=== PATIENT | female | born 1960 | race Caucasian/White ===

== ENCOUNTER 2017-09-25 18:45 | Observation (INO) | payer OTHER ==
[2017-09-25] MEDS ORDERED: NALOXONE HCL INJ/PF 0.4 MG/1 ML SDV ONE (18:56)
[2017-09-25 19:11] LABS: ABSOLUTE EOSINOPHILS # (AUTO) 0.2 10^3/uL (0.0-0.6); ABSOLUTE LYMPHOCYTES (AUTO) 2.1 10^3/uL (0.5-4.7); ABSOLUTE MONOCYTES (AUTO) 1.1 10^3/uL (0.1-1.4); ABSOLUTE NEUT (AUTO) 12.1 10^3/uL (1.7-8.2); BASOPHILS % (AUTO) 0.3 % (0-2); EOSINOPHILS % (AUTO) 1.6 % (0-6); HEMATOCRIT 38.8 % (36.0-47.0); HEMOGLOBIN 13.1 g/dL (12.0-15.5); LYMPHOCYTES % (AUTO) 13.2 % (13-45); MEAN CORPUSCULAR HEMOGLOBIN 32.1 pg (27.0-33.4); MEAN CORPUSCULAR HGB CONC 33.8 g/dL (32.0-36.0); MEAN CORPUSCULAR VOLUME 95 fl (80-97); MONOCYTES % (AUTO) 7.2 % (3-13); PLATELET COUNT 256 10^3/uL (150-450); RED BLOOD COUNT 4.08 10^6/uL (3.72-5.28); RED CELL DISTRIBUTION WIDTH 12.8 % (11.5-14.0); SEGMENTED NEUTROPHILS % (AUTO) 77.7 % (42-78); TOTAL CELLS COUNTED % (AUTO) 100 %; WHITE BLOOD COUNT 15.6 10^3/uL (4.0-10.5)
[2017-09-25 19:29] LABS: ALANINE AMINOTRANSFERASE 20 U/L (9-52); ALBUMIN 4.1 g/dL (3.5-5.0); ALKALINE PHOSPHATASE 92 U/L (38-126); ANION GAP 10 (5-19); ASPARTATE AMINO TRANSFERASE 32 U/L (14-36); BILIRUBIN,DIRECT 0.3 mg/dL (0.0-0.4); BILIRUBIN,TOTAL 0.4 mg/dL (0.2-1.3); BLOOD UREA NITROGEN 5 mg/dL (7-20); CALCIUM 9.7 mg/dL (8.4-10.2); CARBON DIOXIDE 30 mmol/L (22-30); CHLORIDE 101 mmol/L (98-107); GLUCOSE 101 mg/dL (75-110); SODIUM 141.1 mmol/L (137-145); TOTAL PROTEIN 7.2 g/dL (6.3-8.2)
[2017-09-25 20:57] LABS: URINE AMPHETAMINES SCREEN NEGATIVE; URINE BARBITURATES SCREEN NEGATIVE; URINE BENZODIAZEPINES SCREEN UNCONFIRMED POSITIVE; URINE COCAINE SCREEN NEGATIVE; URINE MARIJUANA (THC) SCREEN NEGATIVE; URINE METHADONE SCREEN NEGATIVE; URINE PHENCYCLIDINE SCREEN NEGATIVE
--- NOTE | 2017-09-25 21:08 | ER Document Report ---
ED General - General Chief Complaint: Overdose Stated Complaint: POSSIBLE OVERDOSE Time Seen by Provider: 09/25/17 18:57 Mode of Arrival: Ambulatory Information source: Patient Notes: 57-year-old female presents as overdose altered mental status from home. Patient was found to be confused minimally responsive by EMS she was satting 87 % on room air nasal cannula was placed and patient was brought to the emergency department where he was noted to come in with a bottle of promethazine/codeine 480 mL bottle with almost 450 mL's missing. Patient notes she drank the whole bottle patient denies suicidal ideation states she was taking it to sleep TRAVEL OUTSIDE OF THE [place] IN LAST 30 DAYS: No - HPI Onset: Just prior to arrival Onset/Duration: Sudden Quality of pain: No pain Severity: Moderate Pain Level: 1 Associated symptoms: Other Exacerbated by: Denies Relieved by: Denies Similar symptoms previously: No Recently seen / treated by doctor: No - Related Data Allergies/Adverse Reactions: No Known Allergies Allergy (Verified 10/03/15 09:22) Past Medical History - Social History Smoking Status: Never Smoker Cigarette use (# per day): No Chew tobacco use (# tins/day): No Smoking Education Provided: No Frequency of alcohol use: Occasional Drug Abuse: None Family History: Reviewed & Not Pertinent Patient has suicidal ideation: No Patient has homicidal ideation: No - Past Medical History Cardiac Medical History: Reports: Hx Hypertension Endocrine Medical History: Reports: Hx Diabetes Mellitus Type 2 Renal/ Medical History: Denies: Hx Peritoneal Dialysis Psychiatric Medical History: Reports: Hx Bipolar Disorder, Hx Depression, Hx Post Traumatic Stress Disorder - Immunizations Hx Diphtheria, Pertussis, Tetanus Vaccination: Yes Review of Systems - Review of Systems Notes: REVIEW OF SYSTEMS: CONSTITUTIONAL : Denies fever, chills, or sweats. Denies recent illness. EENT: Denies eye, ear, throat, or mouth pain or symptoms. Denies nasal or sinus congestion or discharge. Denies throat, tongue, or mouth swelling or difficulty swallowing. CARDIOVASCULAR: Denies chest pain. Denies palpitations or racing or irregular heart beat. Denies ankle edema. RESPIRATORY: Denies cough, cold, or chest congestion. Denies shortness of breath, difficulty breathing, or wheezing. GASTROINTESTINAL: Denies abdominal pain or distention. Denies nausea, vomiting , or diarrhea. Denies blood in vomitus, stools, or per rectum. Denies black, tarry stools. Denies constipation. GENITOURINARY: Denies difficulty urinating, painful urination, burning, frequency, blood in urine, or discharge. FEMALE GENITOURINARY: Denies vaginal bleeding, heavy or abnormal periods, irregular periods. Denies vaginal discharge or odor. MUSCULOSKELETAL: Denies back or neck pain or stiffness. Denies joint pain or swelling. SKIN: Denies rash, lesions or sores. HEMATOLOGIC : Denies easy bruising or bleeding. LYMPHATIC: Denies swollen, enlarged glands. NEUROLOGICAL: drowsy PSYCHIATRIC: Denies anxiety or stress. Denies depression, suicidal ideation, or homicidal ideation. ALL OTHER SYSTEMS REVIEWED AND NEGATIVE. PHYSICAL EXAMINATION: GENERAL: Well-appearing, well-nourished and in no acute distress. HEAD: Atraumatic, normocephalic. EYES: Pupils are constricted bilateral ENT: Nares patent, oropharynx clear without exudates. Moist mucous membranes. Nasal cannula placed NECK: Normal range of motion, supple without lymphadenopathy LUNGS: Breath sounds clear to auscultation bilaterally and equal. No wheezes rales or rhonchi. HEART: Regular rate and rhythm without murmurs ABDOMEN: Soft, nontender, nondistended abdomen. No guarding, no rebound. No masses appreciated. Female : deferred Musculoskeletal: Normal range of motion, no pitting or edema. No cyanosis. NEUROLOGICAL: drowsy, pt alert to pain stimuli PSYCH: Normal mood, normal affect. SKIN: Warm, Dry, normal turgor, no rashes or lesions noted. Dictation was performed using [employer] voice recognition software Physical Exam - Vital signs Vitals: BP Pulse Ox 114/83 94 09/25/17 18:54 09/25/17 18:54 Course - Re-evaluation Re-evalutation: 09/25/17 22:01 This appears to be an accidental overdose, patient is poorly compliant with her medications seems to take it as she feels, she did take a bottle of someone else 's medication, she was given 0.4 mg of Narcan and had immediate response to it, however given the amount that she drank and the fact that she continues to be drowsy in the emergency department I do feel it is appropriate to continue watching the patient overnight in the hospital patient was admitted for overdose - Vital Signs Vital signs: Temp Pulse Resp BP Pulse Ox 117/80 94 09/25/17 19:00 09/25/17 19:01 - Laboratory Result Diagrams: 09/25/17 18:25 09/25/17 18:25 Laboratory results interpreted by me: 09/25/17 09/25/17 18:25 18:25 WBC 15.6 H Absolute Neutrophils 12.1 H BUN 5 L Critical Care Note - Critical Care Note Total time excluding time spent on procedures (mins): 34 Comments: 34 minutes of critical care time spent in direct contact evaluating and reevaluating the patient, treating symptoms, reviewing labs and studies and speaking with family and consultants excluding any procedures Discharge - Discharge Clinical Impression: Metabolic encephalopathy, Hypoxemia Overdose Qualifiers: Encounter type: initial encounter Injury intent: accidental or unintentional Qualified Code(s): T50.901A - Poisoning by unspecified drugs, medicaments and biological substances, accidental (unintentional), initial encounter Condition: Stable Disposition: ADMITTED OBSERVATION Admitting Provider: Hospitalist Unit Admitted: [facility]
[2017-09-25] MEDS ORDERED: DEXTROSE 40% GEL 15 GM TUBE PO PRN ×2 (23:08)
[2017-09-25] MEDS ORDERED: DEXTROSE 50%-WATER 25 GM/50 ML DISP.SYRIN IV PRN ×2 (23:08)
[2017-09-25] MEDS ORDERED: GLUCAGON,HUMAN RECOMB 1 MG INJ IM PRN (23:08)
[2017-09-25] MEDS ORDERED: INSULIN LISPRO 100 UNIT/ML 3 ML VIAL SUBCUT PRN (23:08)
--- NOTE | 2017-09-25 23:08 | PDOC H&P ---
History of Present Illness Admission Date/PCP: 09/25/17 21:27 JUDSON DO MD History of Present Illness: SOPHIA BOO is a 57 year old female patient with past medical history of bipolar disorder brought by EMS for altered mental status. Since patient is somewhat sedated and impaired she is not source of history. Brief history is obtained from ER attending note. Per ER attending note patient gulped a bottle containing 450 mL of Phenergan and codeine. Reportedly it is an accidental overdose just to help her with sleep. Patient was given Narcan and her mental status relatively improved. Review of system and detailed history is unobtainable. Past Medical History Cardiac Medical History: Reports: Hypertension Endocrine Medical History: Reports: Diabetes Mellitus Type 2 Psychiatric Medical History: Reports: Bipolar Disorder, Depression, Post Traumatic Stress Disorder Social History Smoking Status: Never Smoker Frequency of Alcohol Use: Heavy Hx Recreational Drug Use: Yes Drugs: Cocaine Hx Prescription Drug Abuse: No Family History Family History: Reviewed & Not Pertinent Parental Family History Reviewed: Yes Children Family History Reviewed: Yes Sibling(s) Family History Reviewed.: Yes Medication/Allergy Home Medications: Alprazolam [Xanax 0.5 mg Tablet] 0.5 mg PO TIDP PRN 09/25/17 Buspirone HCl [Buspar 10 mg Tablet] 10 mg PO Q12 09/25/17 Divalproex Sodium [Depakote ER 500 mg Tab.sr] 500 mg PO Q12 09/25/17 Folic Acid [Folvite 1 mg Tablet] 1 mg PO DAILY 09/25/17 Multivitamin [Multiple Vitamins] 1 tab PO DAILY 09/25/17 Pantoprazole Sodium [Protonix] 40 mg PO DAILY 09/25/17 Thiamine HCl [Vitamin B-1] 50 mg PO DAILY 09/25/17 Trazodone HCl [Desyrel] 100 mg PO QHS 09/25/17 Allergies/Adverse Reactions: No Known Allergies Allergy (Verified 10/03/15 09:22) Review of Systems ROS unobtainable: Due to mental status Physical Exam Vital Signs: Temp Pulse Resp BP Pulse Ox 9 L 127/82 H 94 09/25/17 22:01 09/25/17 22:00 09/25/17 22:01 General appearance: PRESENT: no acute distress, well-developed, well-nourished Head exam: PRESENT: atraumatic, normocephalic Eye exam: PRESENT: conjunctiva pink, EOMI, PERRLA. ABSENT: scleral icterus Neck exam: ABSENT: carotid bruit, JVD, lymphadenopathy, thyromegaly Respiratory exam: PRESENT: clear to auscultation morgan. ABSENT: rales, rhonchi, wheezes Cardiovascular exam: PRESENT: RRR. ABSENT: diastolic murmur, rubs, systolic murmur GI/Abdominal exam: PRESENT: normal bowel sounds, soft. ABSENT: distended, guarding, mass, organolmegaly, rebound, tenderness Neurological exam: PRESENT: altered Psychiatric exam: PRESENT: depressed Assessment & Plan - Diagnosis (1) Accidental drug overdose Qualifiers: Encounter type: initial encounter Qualified Code(s): T50.901A - Poisoning by unspecified drugs, medicaments and biological substances, accidental ( unintentional), initial encounter Is this a current diagnosis for this admission?: Yes Plan: Patient has been improving after she was given Narcan. She will be admitted for observation. Fall, seizure, aspiration precaution. (2) Altered mental status Qualifiers: Altered mental status type: disorientation Qualified Code(s): R41.0 - Disorientation, unspecified Is this a current diagnosis for this admission?: Yes Plan: Continue to improve (3) Hypoxemia Is this a current diagnosis for this admission?: Yes Plan: Has resolved after she started on oxygen via nasal cannula.
[2017-09-26] MEDS: LANSOPRAZOLE 30 MG TAB.RAP.DR PO SCH (05:03)
[2017-09-26 06:47] LABS: HEMATOCRIT 34.5 % (36.0-47.0); HEMOGLOBIN 11.9 g/dL (12.0-15.5); MEAN CORPUSCULAR HEMOGLOBIN 32.7 pg (27.0-33.4); MEAN CORPUSCULAR HGB CONC 34.4 g/dL (32.0-36.0); MEAN CORPUSCULAR VOLUME 95 fl (80-97); PLATELET COUNT 213 10^3/uL (150-450); RED BLOOD COUNT 3.63 10^6/uL (3.72-5.28); RED CELL DISTRIBUTION WIDTH 13.2 % (11.5-14.0); WHITE BLOOD COUNT 11.3 10^3/uL (4.0-10.5)
[2017-09-26 07:05] LABS: ANION GAP 7 (5-19); BLOOD UREA NITROGEN 6 mg/dL (7-20); CALCIUM 9.1 mg/dL (8.4-10.2); CARBON DIOXIDE 34 mmol/L (22-30); CHLORIDE 102 mmol/L (98-107); GLUCOSE 88 mg/dL (75-110); POTASSIUM 3.8 mmol/L (3.6-5.0); SODIUM 142.6 mmol/L (137-145)
[2017-09-26 08:12] LABS: APPEARANCE,URINE CLEAR; BILIRUBIN,URINE NEGATIVE (NEGATIVE); COLOR,URINE YELLOW; GLUCOSE, URINE NEGATIVE (NEGATIVE); KETONES,URINE NEGATIVE (NEGATIVE); LEUKOCYTE ESTERASE,URINE NEGATIVE (NEGATIVE); NITRITE,URINE NEGATIVE (NEGATIVE); PROTEIN,URINE NEGATIVE (NEGATIVE); URINE SPECIFIC GRAVITY 1.009; UROBILINOGEN,URINE NEGATIVE mg/dL (<2.0)
[2017-09-26] MEDS: ENOXAPARIN SODIUM INJ 40 MG/0.4 ML DISP.SYRIN SUBCUT SCH (09:41)
[2017-09-26] MEDS: ACETAMINOPHEN 325 MG TABLET PO PRN (18:25)
[2017-09-26] MEDS ORDERED: ALPRAZOLAM 0.5 MG TABLET PO PRN (19:49)
--- NOTE | 2017-09-26 19:53 | PDOC PROGRESS REPORT ---
Subjective Progress Note for:: 09/26/17 Subjective:: Is feeling significantly better. She is awakening. She has some bruises and scrapes where she fell secondary to sedation. No chest pain or difficulty breathing. She is eating and drinking a little bit now. She has been sleeping most of the day. No abdominal pain nausea vomiting confusion. Reason For Visit: DRUG OVERDOSE Physical Exam Vital Signs: Temp Pulse Resp BP Pulse Ox 98.8 F 83 16 121/67 97 09/26/17 15:16 09/26/17 19:00 09/26/17 15:16 09/26/17 15:16 09/26/17 15:16 Intake & Output 09/25/17 09/26/17 09/27/17 06:59 06:59 06:59 Intake Total 375 1633 Output Total 1050 Balance 375 583 Weight 93.4 kg General appearance: PRESENT: no acute distress, cooperative, morbidly obese Head exam: PRESENT: atraumatic, normocephalic Eye exam: ABSENT: conjunctival injection, scleral icterus Mouth exam: PRESENT: dry mucosa, tongue midline Respiratory exam: PRESENT: clear to auscultation morgan, unlabored. ABSENT: rales , rhonchi, wheezes Cardiovascular exam: PRESENT: RRR. ABSENT: systolic murmur Pulses: PRESENT: normal radial pulses GI/Abdominal exam: PRESENT: normal bowel sounds, soft. ABSENT: distended, firm , guarding, tenderness Extremities exam: ABSENT: pedal edema Neurological exam: PRESENT: awake, oriented to person, oriented to place, oriented to situation, CN II-XII grossly intact Psychiatric exam: PRESENT: appropriate affect. ABSENT: anxious Skin exam: PRESENT: dry, intact, warm Results Laboratory Results: 09/26/17 05:50 09/26/17 05:50 09/26/17 09/26/17 09/26/17 05:50 05:50 07:10 WBC 11.3 H RBC 3.63 L Hgb 11.9 L Hct 34.5 L MCV 95 MCH 32.7 MCHC 34.4 RDW 13.2 Plt Count 213 Sodium 142.6 Potassium 3.8 Chloride 102 Carbon Dioxide 34 H Anion Gap 7 BUN 6 L Creatinine 0.68 Est GFR ( Amer) > 60 Est GFR (Non-Af Amer) > 60 Glucose 88 Calcium 9.1 Urine Color YELLOW Urine Appearance CLEAR Urine pH 6.0 Ur Specific [place] 1.009 Urine Protein NEGATIVE Urine Glucose (UA) NEGATIVE Urine Ketones NEGATIVE Urine Blood NEGATIVE Urine Nitrite NEGATIVE Ur Leukocyte Esterase NEGATIVE Urine WBC (Auto) 2 Urine RBC (Auto) 0 Assessment & Plan - Diagnosis (1) Accidental drug overdose Qualifiers: Encounter type: initial encounter Qualified Code(s): T50.901A - Poisoning by unspecified drugs, medicaments and biological substances, accidental ( unintentional), initial encounter Is this a current diagnosis for this admission?: Yes Plan: Patient had insomnia and drink some of her mother's codeine thinking that this would help her sleep better. Apparently there was Phenergan and the preparation as well. Patient had an accidental overdose and was brought to the ER for loss of consciousness. She is metabolizing the drugs and doing significantly better. She does not report an intentional overdose or suicidal ideation. (2) Hypoxemia Is this a current diagnosis for this admission?: Yes Plan: Patient is satting in the high 90s on room room air. Problem was secondary to accidental drug overdose. (3) Metabolic encephalopathy Is this a current diagnosis for this admission?: Yes Plan: Secondary to accidental drug overdose. Patient's baseline mental status is returning. (4) Anxiety disorder Is this a current diagnosis for this admission?: Yes Plan: Started the patient's Xanax 0.5 mg p.o. 3 times daily as needed anxiety as she has been on this for a while and her mental status can tolerate it now. (5) Bipolar disorder Is this a current diagnosis for this admission?: Yes Plan: Patient's Depakote has been restarted. - Time Time Spent with patient: 25-34 minutes Anticipated discharge: Home
[2017-09-26] MEDS: DIVALPROEX SODIUM 500 MG TAB.SR.24H PO SCH (21:27)
[2017-09-27] MEDS: LANSOPRAZOLE 30 MG TAB.RAP.DR PO SCH (05:57)
[2017-09-27] MEDS: ACETAMINOPHEN 325 MG TABLET PO PRN ×2 (07:42→14:03)
[2017-09-27] MEDS: DIVALPROEX SODIUM 500 MG TAB.SR.24H PO SCH (09:25)
[2017-09-27] MEDS: ENOXAPARIN SODIUM INJ 40 MG/0.4 ML DISP.SYRIN SUBCUT SCH (09:27)
[2017-09-27] MEDS ORDERED: (PENDING PHARMACY ID) (Thiamine Hcl [Vitamin B-1] 50 MG) PO SCH (10:00)
[2017-09-27] MEDS ORDERED: THIAMINE HCL 100 MG TABLET PO SCH (10:00)
[2017-09-27] MEDS ORDERED: FOLIC ACID 1 MG TABLET PO SCH (10:00)
[2017-09-27] MEDS ORDERED: MULTIVITAMIN TABLET PO SCH (10:00)
[2017-09-27 10:58] LABS: ANION GAP 7 (5-19); BLOOD UREA NITROGEN 5 mg/dL (7-20); CALCIUM 9.4 mg/dL (8.4-10.2); CARBON DIOXIDE 33 mmol/L (22-30); CHLORIDE 100 mmol/L (98-107); GLUCOSE 103 mg/dL (75-110); POTASSIUM 3.9 mmol/L (3.6-5.0); SODIUM 139.9 mmol/L (137-145)
[2017-09-27 15:50] LABS: ANION GAP 8 (5-19); BLOOD UREA NITROGEN 7 mg/dL (7-20); CALCIUM 9.3 mg/dL (8.4-10.2); CARBON DIOXIDE 30 mmol/L (22-30); CHLORIDE 101 mmol/L (98-107); GLUCOSE 120 mg/dL (75-110); POTASSIUM 4.3 mmol/L (3.6-5.0); SODIUM 139.1 mmol/L (137-145)
[2017-09-27 16:15] VITALS: BP 113/75
--- NOTE | 2017-09-27 16:31 | PDOC DISCHARGE SUMMARY ---
General - Admit/Disc Date/PCP Admission Date/Primary Care Provider: 09/25/17 21:27 JUDSON DO MD Discharge Date: 09/27/17 - Discharge Diagnosis (1) Accidental drug overdose Is this a current diagnosis for this admission?: Yes Summary: Patient states that she took some of her mother's medication that she thought would help her sleep, her mother brought the bottle in and there was codeine and Phenergan in the preparation. Patient was very somnolent for most of her stay until the day of discharge when she awakened back to her normal state. Her CO2 was elevated until the day of discharge. She is eating and drinking without difficulty. She is able to stay awake without difficulty. I think she is now safe for discharge home. (2) Hypoxemia Is this a current diagnosis for this admission?: Yes Summary: Secondary to accidental drug overdose. Patient is back to her baseline which does not include oxygen usage. (3) Metabolic encephalopathy Is this a current diagnosis for this admission?: Yes Summary: Secondary to accidental overdose. Her mental status is back to her baseline. (4) Anxiety disorder Is this a current diagnosis for this admission?: Yes Summary: Patient is back to her baseline. Her home Xanax has been started. (5) Bipolar disorder Is this a current diagnosis for this admission?: Yes Summary: Patient is back to baseline, her home Depakote has been started. - Additional Information Resuscitation Status: Full Code Discharge Diet: Diabetic Discharge Activity: Balance Activity w/Rest Home Medications: Alprazolam [Xanax 0.5 mg Tablet] 0.5 mg PO TIDP PRN 09/25/17 Buspirone HCl [Buspar 10 mg Tablet] 10 mg PO Q12 09/25/17 Divalproex Sodium [Depakote ER 500 mg Tab.sr] 500 mg PO Q12 09/25/17 Folic Acid [Folvite 1 mg Tablet] 1 mg PO DAILY 09/25/17 Multivitamin [Multiple Vitamins] 1 tab PO DAILY 09/25/17 Pantoprazole Sodium [Protonix] 40 mg PO DAILY 09/25/17 Thiamine HCl [Vitamin B-1] 50 mg PO DAILY 09/25/17 Trazodone HCl [Desyrel] 100 mg PO QHS 09/25/17 History of Present Illness History of Present Illness: SOPHIA BOO is a 57 year old woman with past medical history of bipolar disorder brought by EMS for altered mental status. Since patient is somewhat sedated and impaired she is not source of history. Brief history is obtained from ER attending note. Per ER attending note patient gulped a bottle containing 450 mL of Phenergan and codeine. Reportedly it is an accidental overdose just to help her with sleep. Patient was given Narcan and her mental status relatively improved. She was admitted to the hospitalist service for observation and management. Hospital Course Hospital Course: See hospital course by problem list. Physical Exam Vital Signs: Temp Pulse Resp BP Pulse Ox 98.3 F 65 18 113/75 97 09/27/17 16:13 09/27/17 16:13 09/27/17 16:13 09/27/17 16:13 09/27/17 16:13 Intake & Output 09/26/17 09/27/17 09/28/17 06:59 06:59 06:59 Intake Total 375 1653 222 Output Total 1050 Balance 375 603 222 Weight 93.4 kg 95.4 kg General appearance: PRESENT: no acute distress, cooperative, obese Eye exam: PRESENT: EOMI. ABSENT: conjunctival injection, scleral icterus Ear exam: PRESENT: normal external ear exam Mouth exam: PRESENT: moist, tongue midline Respiratory exam: PRESENT: clear to auscultation morgan, unlabored. ABSENT: rales , rhonchi, wheezes Cardiovascular exam: PRESENT: RRR. ABSENT: systolic murmur Pulses: PRESENT: normal radial pulses GI/Abdominal exam: PRESENT: normal bowel sounds, soft. ABSENT: distended, firm , guarding, tenderness Extremities exam: ABSENT: pedal edema Neurological exam: PRESENT: alert, awake, oriented to person, oriented to place , oriented to situation, CN II-XII grossly intact Psychiatric exam: PRESENT: appropriate affect. ABSENT: anxious Skin exam: PRESENT: dry, intact, warm Results Laboratory Results: 09/26/17 05:50 09/27/17 15:18 09/27/17 09/27/17 10:01 15:18 Sodium 139.9 139.1 Potassium 3.9 4.3 Chloride 100 101 Carbon Dioxide 33 H 30 Anion Gap 7 8 BUN 5 L 7 Creatinine 0.56 0.63 Est GFR ( Amer) > 60 > 60 Est GFR (Non-Af Amer) > 60 > 60 Glucose 103 120 H Calcium 9.4 9.3 Qualifiers - * PATIENT BEING DISCHARGED WITH ANY OF THE FOLLOWING DIAGNOSIS: No Plan Discharge Plan: Patient is back to her baseline condition. She will be discharged home and her mother is picking her up. Time Spent: Greater than 30 Minutes
== END 2017-09-27 16:53 | disposition home or self-care (01) ==
LOC: ER 18:45 → EH 21:27 → 3S 23:30
PROVIDERS: ADMIT Internal Medicine; ATTEND Internal Medicine
DX: T43.3X1A Poisoning by phenothiazine antipsychotics and neuroleptics, accidental (unintentional), initial encounter (principal); T40.2X1A Poisoning by other opioids, accidental (unintentional), initial encounter; G92 Toxic encephalopathy; R09.02 Hypoxemia; F41.9 Anxiety disorder, unspecified; F31.9 Bipolar disorder, unspecified; E66.9 Obesity, unspecified; T14.8XXA Other injury of unspecified body region, initial encounter; W19.XXXA Unspecified fall, initial encounter; G47.00 Insomnia, unspecified; Z91.14 Patient's other noncompliance with medication regimen; Z68.36 Body mass index [BMI] 36.0-36.9, adult
CPT/HCPCS: 99291; 51701; 96374; 36415 ×3; 87086; 82962; 85025; 85027; 80048 ×2; 80053; 81001; 80307; G0378 ×3; J2310; J1650 ×2; J3490 ×2